=== PATIENT | female | born 1980 | race Caucasian/White ===

== ENCOUNTER 2016-07-25 17:17 | Emergency (ER) | payer OTHER ==
[~2016-07-25] VITALS: Ht 157.5 cm; Wt 90.0 kg
[~2016-07-25 17:17] MED LIST: NAPR250UDC PO
[2016-07-25] MEDS ORDERED: SODIUM CHLORIDE 0.9% FLUSH 10 ML FLUSH IVF PRN (17:45)
--- NOTE | 2016-07-25 17:54 | PD ---
HPI Time Seen by Provider: 17:42 PFSH Past Medical History Diminished Hearing: No Headaches: Yes (MIGRAINES) Immunizations Current: No : 1 Social History Alcohol Use: Yes (OCCASIONAL ) Tobacco Use: No Substance Use: No Allergies-Medications (Allergen,Severity, Reaction): Coded Allergies: Penicillin (Verified Allergy, Intermediate, Swelling, 01/29/03) Uncoded Allergies: MANGOS (Allergy, Intermediate, Swelling, 01/29/03) Reported Meds & Prescriptions Reported Meds & Active Scripts Active Reported Naprosyn (Naproxen) 125 Mg/5 Ml Dorene 0 PO DIRECTED UNKNOWN DOSE Data Data Last Documented VS Vital Signs Date Time Temp Pulse Resp B/P Pulse Ox O2 Delivery O2 Flow Rate FiO2 07/25/16 21:38 63 18 122/73 98 Room Air 07/25/16 18:04 98.0 Orders Basic Metabolic Panel (Bmp) (07/25/16 17:42) Complete Blood Count With Diff (07/25/16 17:42) Prothrombin Time / Inr (Pt) (07/25/16 17:42) Act Partial Throm Time (Ptt) (07/25/16 17:42) Alcohol (Ethanol) (07/25/16 17:42) Beta Hcg (Quant/Titer) (07/25/16 17:42) Chest, Single Ap (07/25/16 17:42) Pelvis, Ap Only (Routine) (07/25/16 17:42) Ct Brain W/O Iv Contrast(Rout) (07/25/16 17:42) Ct Cerv Spine W/O Contrast (07/25/16 17:42) Ct Abd/Pel W Iv Contrast(Rout) (07/25/16 17:42) Ct Thorax/ Chest W Iv Contrast (07/25/16 17:42) Electrocardiogram (07/25/16 17:42) Iv Access Insert/Monitor (07/25/16 17:42) Ecg Monitoring (07/25/16 17:42) Oximetry (07/25/16 17:42) Oxygen Administration (07/25/16 17:42) Sodium Chloride 0.9% Flush (Ns Flush) (07/25/16 17:45) Acetaminophen (Tylenol) (07/25/16 18:45) Cjxb-Ter-Riclkz (Booster) Inj (Boostrix (07/25/16 19:45) Lidocaine 2% Inj (Xylocaine 2% Inj) (07/25/16 19:45) Iohexol 350 Inj (Omnipaque 350 Inj) (07/25/16 20:01) Labs Laboratory Tests Test 07/25/16 18:00 White Blood Count 13.7 TH/MM3 Red Blood Count 4.74 MIL/MM3 Hemoglobin 11.8 GM/DL Hematocrit 37.9 % Mean Corpuscular Volume 80.1 FL Mean Corpuscular Hemoglobin 25.0 PG Mean Corpuscular Hemoglobin 31.2 % Concent Red Cell Distribution Width 15.4 % Platelet Count 358 TH/MM3 Mean Platelet Volume 7.8 FL Neutrophils (%) (Auto) 78.8 % Lymphocytes (%) (Auto) 15.8 % Monocytes (%) (Auto) 4.4 % Eosinophils (%) (Auto) 0.4 % Basophils (%) (Auto) 0.6 % Neutrophils # (Auto) 10.8 TH/MM3 Lymphocytes # (Auto) 2.2 TH/MM3 Monocytes # (Auto) 0.6 TH/MM3 Eosinophils # (Auto) 0.1 TH/MM3 Basophils # (Auto) 0.1 TH/MM3 CBC Comment DIFF FINAL Differential Comment Prothrombin Time 9.8 SEC Prothromb Time International 0.9 RATIO Ratio Activated Partial 21.3 SEC Thromboplast Time Sodium Level 138 MEQ/L Potassium Level 3.7 MEQ/L Chloride Level 108 MEQ/L Carbon Dioxide Level 21.2 MEQ/L Anion Gap 9 MEQ/L Blood Urea Nitrogen 10 MG/DL Creatinine 0.86 MG/DL Estimat Glomerular Filtration 75 ML/MIN Rate Random Glucose 94 MG/DL Calcium Level 8.3 MG/DL Human Chorionic Gonadotropin, LESS THAN 1 Quant MIU/ML Ethyl Alcohol Level LESS THAN 3 MG/DL MDM Medical Decision Making Interpretation(s) EKG shows normal sinus rhythm normal axis normal R-wave progression. No concerning ST T changes. This normal EKG. Etienne Rios MD July 25, 2016 17:54 Etienne Rios MD July 25, 2016 17:54
[2016-07-25 18:04] VITALS: BP 126/72; PULSE 88; RESP 18; TEMP 98; O2SAT 99
[2016-07-25 18:14] LABS: AUTOMATED NEUTROPHIL # 10.8 TH/MM3 (1.8-7.7); BASOPHIL # 0.1 TH/MM3 (0-0.2); BASOPHIL % 0.6 % (0.0-2.0); EOSINOPHIL # 0.1 TH/MM3 (0-0.4); EOSINOPHIL % 0.4 % (0.0-4.0); HEMATOCRIT 37.9 % (35.0-46.0); HEMO FLAGS DIFF FINAL; LYMPH % 15.8 % (9.0-44.0); LYMPHOCYTE # 2.2 TH/MM3 (1.0-4.8); MEAN CELL VOLUME 80.1 FL (80.0-100.0); MEAN CORPUSCULAR HGB CONC 31.2 % (32.0-36.0); MONO % 4.4 % (0.0-8.0); NEUT % 78.8 % (16.0-70.0); PLATELET COUNT 358 TH/MM3 (150-450); RED BLOOD COUNT 4.74 MIL/MM3 (4.00-5.30); RED CELL DISTRIBUTION WIDTH 15.4 % (11.6-17.2); WHITE BLOOD COUNT 13.7 TH/MM3 (4.0-11.0)
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
[2016-07-25 18:30] LABS: ANION GAP 9 MEQ/L (5-15); BICARBONATE 21.2 MEQ/L (21.0-32.0); BLOOD UREA NITROGEN 10 MG/DL (7-18); CHLORIDE 108 MEQ/L (98-107); GLOMERULAR FILTRATION RATE 75 ML/MIN (>89); POTASSIUM 3.7 MEQ/L (3.5-5.1); SODIUM (NA) 138 MEQ/L (136-145)
[2016-07-25 18:32] LABS: APTT (PATIENT) 21.3 SEC (24.3-30.1); INTERNATIONAL NORMALIZED RATIO 0.9 RATIO; PROTHROMBIN TIME - PATIENT 9.8 SEC (9.8-11.6)
[2016-07-25 18:34] LABS: BETA HCG QUANT LESS THAN 1 MIU/ML (0-5)
[2016-07-25] MEDS ORDERED: ACETAMINOPHEN 325 MG TAB PO ONE (18:45)
[2016-07-25 18:58] VITALS: PULSE 85; RESP 18
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
[2016-07-25] MEDS ORDERED: LIDOCAINE HCL 2% 50 ML VIAL INFIL ONE (19:45)
[2016-07-25] MEDS ORDERED: DIPHTH/TETANUS/ACEL PERTUSSIS (BOOSTER) 0.5 ML VIAL/PFS IM ONE (19:45)
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
[2016-07-25 19:58] VITALS: BP 116/59; PULSE 70; RESP 18; O2SAT 98
[2016-07-25] MEDS ORDERED: IOHEXOL 350 MG/ML 10 ML VIAL (for RAD DIAG) IV ONE (20:01)
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
[2016-07-25 21:38] VITALS: BP 122/73; PULSE 63; RESP 18; O2SAT 98
--- NOTE | 2016-07-25 22:06 | PD ---
Physical Exam Date Seen by Provider: July 25, 2016 Time Seen by Provider: 22:05 Narrative I was asked by Dr. Bobby to repair laceration to the patient's forehead. Please see previous documentation for full history and physical. Data Data Last Documented VS Vital Signs Date Time Temp Pulse Resp B/P Pulse Ox O2 Delivery O2 Flow Rate FiO2 07/25/16 21:38 63 18 122/73 98 Room Air 07/25/16 18:04 98.0 Orders Basic Metabolic Panel (Bmp) (07/25/16 17:42) Complete Blood Count With Diff (07/25/16 17:42) Prothrombin Time / Inr (Pt) (07/25/16 17:42) Act Partial Throm Time (Ptt) (07/25/16 17:42) Type And Screen (07/25/16 17:42) Alcohol (Ethanol) (07/25/16 17:42) Beta Hcg (Quant/Titer) (07/25/16 17:42) Chest, Single Ap (07/25/16 17:42) Pelvis, Ap Only (Routine) (07/25/16 17:42) Ct Brain W/O Iv Contrast(Rout) (07/25/16 17:42) Ct Cerv Spine W/O Contrast (07/25/16 17:42) Ct Abd/Pel W Iv Contrast(Rout) (07/25/16 17:42) Ct Thorax/ Chest W Iv Contrast (07/25/16 17:42) Electrocardiogram (07/25/16 17:42) Iv Access Insert/Monitor (07/25/16 17:42) Ecg Monitoring (07/25/16 17:42) Oximetry (07/25/16 17:42) Oxygen Administration (07/25/16 17:42) Sodium Chloride 0.9% Flush (Ns Flush) (07/25/16 17:45) Drug Screen, Random Urine (07/25/16 17:42) Acetaminophen (Tylenol) (07/25/16 18:45) Aofx-Udt-Ccatet (Booster) Inj (Boostrix (07/25/16 19:45) Lidocaine 2% Inj (Xylocaine 2% Inj) (07/25/16 19:45) Iohexol 350 Inj (Omnipaque 350 Inj) (07/25/16 20:01) Labs Laboratory Tests Test 07/25/16 18:00 White Blood Count 13.7 TH/MM3 Red Blood Count 4.74 MIL/MM3 Hemoglobin 11.8 GM/DL Hematocrit 37.9 % Mean Corpuscular Volume 80.1 FL Mean Corpuscular Hemoglobin 25.0 PG Mean Corpuscular Hemoglobin 31.2 % Concent Red Cell Distribution Width 15.4 % Platelet Count 358 TH/MM3 Mean Platelet Volume 7.8 FL Neutrophils (%) (Auto) 78.8 % Lymphocytes (%) (Auto) 15.8 % Monocytes (%) (Auto) 4.4 % Eosinophils (%) (Auto) 0.4 % Basophils (%) (Auto) 0.6 % Neutrophils # (Auto) 10.8 TH/MM3 Lymphocytes # (Auto) 2.2 TH/MM3 Monocytes # (Auto) 0.6 TH/MM3 Eosinophils # (Auto) 0.1 TH/MM3 Basophils # (Auto) 0.1 TH/MM3 CBC Comment DIFF FINAL Differential Comment Prothrombin Time 9.8 SEC Prothromb Time International 0.9 RATIO Ratio Activated Partial 21.3 SEC Thromboplast Time Sodium Level 138 MEQ/L Potassium Level 3.7 MEQ/L Chloride Level 108 MEQ/L Carbon Dioxide Level 21.2 MEQ/L Anion Gap 9 MEQ/L Blood Urea Nitrogen 10 MG/DL Creatinine 0.86 MG/DL Estimat Glomerular Filtration 75 ML/MIN Rate Random Glucose 94 MG/DL Calcium Level 8.3 MG/DL Human Chorionic Gonadotropin, LESS THAN 1 Quant MIU/ML Ethyl Alcohol Level LESS THAN 3 MG/DL MDM Supervised Visit with TRUONG: No Procedures Procedure Narrative LACERATION LOCATION: forehead LENGTH: 1.5 cm NUMBER OF STITCHES/MAXWELL: dermabond REPAIR: The area of the laceration was prepped with Betadine and sterilely draped. The wound was copiously irrigated and explored without evidence of foreign body, tendon injury or neurovascular injury. The wound was closed using dermabond. This was a single layer repair. A sterile dressing was applied. The patient was advised to keep the dressing clean and dry. Patient tolerated the procedure well. Diagnosis Primary Impression: Syncope Shelley Coulter JEFF July 25, 2016 22:06
--- NOTE | 2016-07-26 07:45 | EKG ---
Date Performed: 07/25/2016 Time Performed: 18:16:57 PTAGE: 36 years EKG: Sinus rhythm NORMAL ECG NO PREVIOUS TRACING DOCTOR: Srikanth Beckett Interpretating Date/Time 07/26/2016 07:43:51
== END 2016-07-25 22:25 | disposition home or self-care (01) ==
LOC: NEPC 17:17
DX: S01.81XA Laceration without foreign body of other part of head, initial encounter (principal); T67.1XXA Heat syncope, initial encounter; V47.5XXA Car driver injured in collision with fixed or stationary object in traffic accident, initial encounter; Y92.410 Unspecified street and highway as the place of occurrence of the external cause; Z23 Encounter for immunization
CPT/HCPCS: 12011; 70450; 71010; 71260; 72125; 72170; 74177; 80048; 80307; 84702; 85025; 85610; 85730; 90471; 90715; 93005; 99285; Q9967